=== PATIENT | female | born 1990 | race American Indian/Alaskan Native ===

== ENCOUNTER 2017-06-11 19:16 | Emergency (ER) | payer MEDICAID ==
[2017-06-11 19:46] VITALS: RESP 18; O2SAT 100
[2017-06-11] MEDS ORDERED: Naproxen 550 mg Tab PO STA (20:35)
[2017-06-11] MEDS ORDERED: Naproxen 550 mg Tab PO ONE (20:37)
--- NOTE | 2017-06-11 21:04 | C.PDOC ---
History Of Present Illness Pt c/o left upper chest/left shoulder area pain. Time Seen by Provider: 06/11/17 20:26 Chief Complaint (Nursing): Chest Pain History Per: Patient Onset/Duration Of Symptoms: Days (about 1 week), Intermittent Episodes Current Symptoms Are (Timing): Still Present Severity: Moderate Quality: "Pain" Associated Symptoms: denies: Nausea, Dyspnea, Diaphoresis, Syncope Modifying Factors: Other Indicated Below Exacerbating Factors: Turning, Movement Additional History Per: Prior Records Past Medical History Reviewed: Historical Data, Nursing Documentation, Vital Signs Vital Signs: Last Vital Signs Temp 98.3 F 06/11/17 19:44 Pulse 72 06/11/17 19:44 Resp 18 06/11/17 19:44 BP 123/82 06/11/17 19:44 Pulse Ox 100 06/11/17 21:03 - Medical History PMH: Asthma, Bronchitis Surgical History: - [facility] Procedures EXTRACTION OF POC, LOW CERVICAL, OPEN APPROACH (02/03/16) Family History: States: Unknown Family Hx - Social History Hx Tobacco Use: No Hx Alcohol Use: No Hx Substance Use: No - Immunization History Hx Tetanus Toxoid Vaccination: No Hx Influenza Vaccination: No Hx Pneumococcal Vaccination: No Review Of Systems Except As Marked, All Systems Reviewed And Found Negative. Constitutional: Negative for: Fever, Weakness Cardiovascular: Positive for: Chest Pain Respiratory: Negative for: Shortness of Breath, Hemoptysis Gastrointestinal: Negative for: Nausea, Vomiting, Abdominal Pain Musculoskeletal: Negative for: Neck Pain, Leg Pain Skin: Negative for: Rash Neurological: Negative for: Weakness, Numbness, Seizures, Altered Mental Status Physical Exam - Physical Exam Appears: Non-toxic, No Acute Distress Skin: Normal Color, Warm, Dry, No Rash Head: Atraumatic, Normacephalic Eye(s): bilateral: Normal Inspection, PERRL, EOMI Neck: Normal ROM, Supple Chest: Symmetrical, No Deformity, Tenderness, No Ecchymosis, No Subcutaneous Emphysema Cardiovascular: Rhythm Regular Respiratory: Normal Breath Sounds, No Accessory Muscle Use Gastrointestinal/Abdominal: Soft, No Tenderness Back: No CVA Tenderness, No Vertebral Tenderness Extremity: Normal ROM, No Pedal Edema, No Calf Tenderness Extremity: Bilateral: Normal Color And Temperature Pulses: Left Radial: Normal, Right Radial: Normal Neurological/Psych: Oriented x3, Normal Motor, Normal Sensation ED Course And Treatment ECG: Interpreted By Me, Viewed By Me ECG Rhythm: Sinus Rhythm ECG Interpretation: No Acute Changes Rate From EC O2 Sat by Pulse Oximetry: 100 Pulse Ox Interpretation: Normal - Radiology CXR: Interpreted by Me, Viewed By Me CXR Interpretation: Yes: No Acute Disease Reassessment Condition: Improved Medical Decision Making Medical Decision Making: PERC rule negative. Disposition Counseled Patient/Family Regarding: Studies Performed, Diagnosis, Need For Followup, Rx Given - Disposition Disposition: HOME/ ROUTINE Disposition Time: 21:05 Condition: IMPROVED Additional Instructions: Follow up with your doctor for further evaluation and treatment. Return to the ER if you develop shortness of breath, worsening of symptoms or if you have any other concerns. Prescriptions: Naproxen [Naprosyn] 1 tab PO BID PRN #20 tab PRN Reason: Pain Instructions: Noncardiac Chest Pain (ED) Forms: [facility] ([place]an) - Clinical Impression Clinical Impression: Non-cardiac chest pain
[2017-06-11 22:21] VITALS: BP 130/93; PULSE 68; TEMP 98
--- NOTE | 2017-06-12 08:20 | RAD ---
HISTORY: Left sided chest pain COMPARISON: No prior. TECHNIQUE: Chest PA and lateral FINDINGS: LUNGS: No active pulmonary disease. PLEURA: No significant pleural effusion identified. No pneumothorax apparent. CARDIOVASCULAR: Normal. OSSEOUS STRUCTURES: No significant abnormalities. VISUALIZED UPPER ABDOMEN: Normal. OTHER FINDINGS: None. IMPRESSION: No active disease.
== END 2017-06-11 21:30 | disposition home or self-care (01) ==
LOC: C.ER 19:16
DX: R07.89 Other chest pain (principal)

== ENCOUNTER 2018-08-12 10:35 | Emergency (ER) | payer MEDICAID ==
[2018-08-12 10:49] VITALS: RESP 18; BMI 36.0
--- NOTE | 2018-08-12 12:06 | C.PDOC ---
History Of Present Illness 27 year old female presents to the ED for evaluation of cough, congestion, runny nose, sore throat and generalized body aches which began 3 days ago. Patient reports history of asthma as a child though does not use any inhalers/nebulizers in "years". She took DayQuil and has been drinking fluids. Patient denies fever, chills, headache, chest pain, shortness of breath, leg swelling, abdominal pain, nausea, vomiting. Time Seen by Provider: 08/12/18 10:39 Chief Complaint (Nursing): Flu-like Symptoms History Per: Patient History/Exam Limitations: no limitations Onset/Duration Of Symptoms: Days (3) Current Symptoms Are (Timing): Still Present Associated Symptoms: Sore Throat, Cough, Nasal Congestion. denies: Fever, Chills, Nausea, Vomiting Additional History Per: Patient Past Medical History Reviewed: Historical Data, Nursing Documentation, Vital Signs Vital Signs: Last Vital Signs Temp 98.0 F 08/12/18 10:44 Pulse 73 08/12/18 10:44 Resp 18 08/12/18 10:44 BP 131/84 08/12/18 10:44 Pulse Ox 100 08/12/18 10:44 - Medical History PMH: Asthma, Bronchitis Surgical History: - [facility] Procedures EXTRACTION OF POC, LOW CERVICAL, OPEN APPROACH (02/03/16) Family History: States: Unknown Family Hx - Social History Hx Tobacco Use: No Hx Alcohol Use: No Hx Substance Use: No - Immunization History Hx Tetanus Toxoid Vaccination: No Hx Influenza Vaccination: No Hx Pneumococcal Vaccination: No Review Of Systems Constitutional: Negative for: Fever, Chills ENT: Positive for: Nose Discharge, Nose Congestion, Throat Pain Cardiovascular: Negative for: Chest Pain Respiratory: Negative for: Shortness of Breath Gastrointestinal: Negative for: Nausea, Vomiting, Abdominal Pain Musculoskeletal: Positive for: Other (generalized body aches ) Neurological: Negative for: Headache Physical Exam - Physical Exam Appears: Non-toxic, No Acute Distress, Other (obese ) Skin: Normal Color, Warm, Dry Head: Atraumatic, Normacephalic Eye(s): bilateral: Normal Inspection, EOMI Ear(s): Bilateral: Normal Nose: Normal, No Discharge Oral Mucosa: Moist Throat: Normal, No Erythema, No Exudate Neck: Normal ROM, Supple Lymphatic: Normal Exam Chest: Symmetrical, No Deformity, No Tenderness Cardiovascular: Rhythm Regular Respiratory: Normal Breath Sounds, No Rales, No Rhonchi, No Wheezing, Other (productive cough occasionally noted ) Gastrointestinal/Abdominal: Normal Exam, Soft, No Tenderness Extremity: Normal ROM, Capillary Refill (less than 2 seconds ) Neurological/Psych: Oriented x3, Normal Speech, Normal Cognition ED Course And Treatment O2 Sat by Pulse Oximetry: 100 (on RA) Pulse Ox Interpretation: Normal Progress Note: Throat culture obtained. Flu A/B test ordered, resulted negative. Rapid Strep test ordered, resulted negative. On reassessment, patient is resting comfortably, showing no signs of distress, remains afebrile, and is stable for discharge. Lungs CTA. Pulse OX 98%. No chest pain. No leg swelling. Patient is advised to follow up with her PMD within 1-2 days for furt her evaluation. Advised to return to the ED if symptoms persist or worsen. Disposition - Disposition Disposition: HOME/ ROUTINE Disposition Time: 12:03 Condition: STABLE Additional Instructions: Follow up with your doctor in 1-2 days. Return to ER if symptoms persist or worsen. 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 - Scribe Statement The provider has reviewed the documentation as recorded by the Scribe (Elizabeth Phillips) All medical record entries made by the Scribe were at my direction and personally dictated by me. I have reviewed the chart and agree that the record accurately reflects my personal performance of the history, physical exam, medical decision making, and the department course for this patient. I have also personally directed, reviewed, and agree with the discharge instructions and disposition.
[2018-08-12 12:18] VITALS: BP 132/79; PULSE 81; TEMP 97.8
[2018-08-12 12:48] VITALS: O2SAT 100
== END 2018-08-12 12:17 | disposition home or self-care (01) ==
LOC: C.ER 10:35
DX: J40 Bronchitis, not specified as acute or chronic (principal)

== ENCOUNTER → 2019-01-03 | Outpatient (CLI) | payer MEDICAID | LOC: C.LAB 09:35 ==